=== PATIENT | male | born 1940 | race Hispanic/Latino ===

== ENCOUNTER 2017-08-06 15:36 | Outpatient (CLI) | payer BC, MEDICARE ==
--- NOTE | 2017-08-06 22:09 | XRay Report ---
FINAL REPORT EXAM: XR HIP 2-3V RT HISTORY: -RIGHT HIP PAIN TECHNIQUE: AP view of the pelvis and 2 coned-down views of the right hip. PRIORS: None. FINDINGS: No evidence for acute fracture or dislocation is seen. There is mild joint space narrowing in the right hip joint. The soft tissues demonstrate vascular calcification. Bony mineralization is normal. A total left hip prosthesis is in place in satisfactory position and alignment. IMPRESSION: No acute soft tissue or bony abnormality noted in the right hip. Mild joint space narrowing on the right.
== END 2017-08-06 15:37 | disposition home or self-care (01) ==
LOC: SPVIMAG 15:36
PROVIDERS: ATTEND Orthopaedic Surgery Sports Medicine
DX: M25.551 Pain in right hip (principal); Z96.642 Presence of left artificial hip joint